=== PATIENT | female | born 1965 ===

== ENCOUNTER 2016-09-01 15:51 | Emergency (ER) | payer MEDICAID ==
[2016-09-01 16:13] VITALS: BP 154/76; PULSE 64; RESP 18; TEMP 98.4; O2SAT 100
--- NOTE | 2016-09-01 16:33 | ED PDOC ---
Upper Extremity Pain/Injury Time Seen by Provider: 09/01/16 16:20 Chief Complaint (Nursing): Finger,Hand,&Wrist Chief Complaint (Provider): Right hand pain History Per: Patient History/Exam Limitations: no limitations Onset/Duration Of Symptoms: Mins Current Symptoms Are (Timing): Still Present Quality: "Pain" Severity: Moderate Exacerbating Factor(s): Strenuous Use Of Affected Area, Movement Additional History Per: Patient Additional Complaint(s): The pt is a 51yo female, presents to the ED for evaluation of right had pain since earlier today. 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 She reports noticing the swelling and redness to her wrist earlier today. Pt states she took one Advil for pain with no relief. Currently offers no additional medical complaints. Past Medical History Reviewed: Historical Data, Nursing Documentation, Vital Signs Vital Signs: Last Vital Signs Temp 98.4 F 09/01/16 16:09 Pulse 64 09/01/16 16:09 Resp 18 09/01/16 16:09 BP 154/76 H 09/01/16 16:09 Pulse Ox 100 09/01/16 16:09 - Medical History PMH: HTN (not taking any meds) Denies: Diabetes, Hepatitis, HIV, Seizures, Sexually Transmitted Disease - Surgical History Surgical History: Cholecystectomy, (x 1) - Family History Family History: States: Unknown Family Hx - Immunization History Hx Tetanus Toxoid Vaccination: No Hx Influenza Vaccination: No Hx Pneumococcal Vaccination: No - Home Medications Home Medications: Ambulatory Orders Medication Instructions Recorded Acetaminophen with Codeine 1 tab PO Q6 PRN #10 tab 11/17/13 [Tylenol with Codeine No. 3 300 mg-30 mg] Oxycodone HCl/Acetaminophen 1 tab PO Q6H PRN #15 tab 03/11/15 [Percocet 325 mg-5 mg] Clindamycin [Cleocin] 300 mg PO TID #21 cap 07/18/15 oxyCODONE/Acetaminophen [Percocet 1 ea PO Q6H PRN #10 tab 07/18/15 5/325 mg Tab] Ibuprofen [Motrin] 600 mg PO Q8 PRN #21 tab 09/01/16 - Allergies Allergies/Adverse Reactions: Allergies Allergy/AdvReac Type Severity Reaction Status Date / Time No Known Allergies Allergy Unverified 11/16/13 14:27 Review of Systems ROS Statement: Except As Marked, All Systems Reviewed And Found Negative Musculoskeletal: Positive for: Hand Pain (right) Physical Exam - Reviewed Nursing Documentation Reviewed: Yes Vital Signs Reviewed: Yes - Physical Exam Appears: Positive for: Well, Non-toxic, No Acute Distress Head Exam: Positive for: ATRAUMATIC, NORMAL INSPECTION, NORMOCEPHALIC Skin: Positive for: Normal Color Neck: Positive for: Normal Respiratory: Negative for: Respiratory Distress Extremity: Positive for: Tenderness (tenderness to touch noted on volar surface of right hand), Swelling (swelling, redness and inflammation noted to volar surface of right hand) - ECG O2 Sat by Pulse Oximetry: 100 - Progress ED Course And Treament: wrist xry: no acute fx; soft tissue swelling noted Placed in volar splint Medical Decision Making Medical Decision Making: Time: 1627 Impression: Right hand pain Plan: -- XR Right hand -- Motrin 400 mg PO --Reassess Scribe Attestation: All records were documented by Fani Han, acting as a Scribe for KYMBERLY Fox. Provider Scribe Attestation: All medical record entries made by the Scribe were at my direction and personally dictated by me. I have reviewed the chart and agree that the record accurately reflects my personal performance of the history, physical exam, medical decision making, and the department course for this patient. I have also personally directed, reviewed, and agree with the discharge instructions and disposition. Disposition - Clinical Impression Clinical Impression: Arthritis - Patient ED Disposition Is Patient to be Admitted: No - Disposition Referrals: [facility] [Outside] Hawa Perez MD [Staff Provider] - Disposition: Routine/Home Disposition Time: 17:25 Condition: FAIR Additional Instructions: PLACE ICE ON WRIST. Prescriptions: Ibuprofen [Motrin] 600 mg PO Q8 PRN #21 tab PRN Reason: Pain, Moderate (4-7) Instructions: Arthritis (ED) Forms: [facility] ED School/Work Excuse Print Language: SWEDISH
--- NOTE | 2016-09-01 16:58 | RAD ---
PROCEDURE: Right Wrist Radiographs. HISTORY: WRIST PAIN COMPARISON: None. FINDINGS: BONES: No acute fracture. JOINTS: No dislocation. Minimal degenerative changes. SOFT TISSUES: Mild soft tissue swelling. OTHER FINDINGS: None. IMPRESSION: No acute fracture seen.
== END 2016-09-01 17:32 | disposition home or self-care (01) ==
LOC: H.ER 15:51
DX: M19.031 Primary osteoarthritis, right wrist (principal); I10 Essential (primary) hypertension